=== PATIENT | female | born 1980 | race Caucasian/White ===

== ENCOUNTER → 2024-10-20 14:00 | Outpatient (BNV) | payer OTHER, SELFPAY | PROVIDERS: PCP Registered Nurse; Referring Provider Advanced Practice Midwife; Visit Provider Nurse Practitioner Family | DX: O99.013 Anemia complicating pregnancy, third trimester (principal); D50.9 Iron deficiency anemia, unspecified | CPT/HCPCS: 99204; 99213 ==

== ENCOUNTER 2024-11-14 14:00 | Outpatient (RCR) | payer OTHER, SELFPAY ==
[2024-10-24 14:53] VITALS: BP 116/71; PULSE 79; RESP 16; TEMP 36.7; O2SAT 98
[2024-10-31 13:52] VITALS: BP 106/68; PULSE 74; RESP 16; TEMP 36.6; O2SAT 98
[2024-11-07 13:58] VITALS: BP 107/77; PULSE 69; RESP 16; TEMP 36.6; O2SAT 99
[2024-11-14 14:06] VITALS: BP 103/64; PULSE 86; RESP 16; TEMP 36.7; O2SAT 96
== END 2024-11-14 14:27 | disposition home or self-care (01) ==
LOC: HO.INF 14:00
PROVIDERS: PCP Registered Nurse; Visit Provider Nurse Practitioner Family
DX: O99.019 Anemia complicating pregnancy, unspecified trimester (principal)
CPT/HCPCS: 96365; 96374; J1756

== ENCOUNTER 2024-12-12 13:00 | Outpatient (RCR) | payer OTHER, SELFPAY ==
[2024-11-21 12:19] VITALS: BP 112/65; PULSE 80; RESP 16; TEMP 36.6; O2SAT 98
[2024-11-28 14:34] VITALS: BP 118/68; PULSE 79; RESP 20; TEMP 37.1; O2SAT 97
[2024-12-05 13:32] VITALS: BP 117/66; PULSE 71; RESP 18; TEMP 36.1
[2024-12-12 13:08] VITALS: BP 98/66; PULSE 76; RESP 18; TEMP 36.6
== END 2024-12-12 14:11 | disposition home or self-care (01) ==
LOC: HO.INF 13:00
PROVIDERS: Visit Provider Nurse Practitioner Family
DX: O99.019 Anemia complicating pregnancy, unspecified trimester (principal); D50.9 Iron deficiency anemia, unspecified
CPT/HCPCS: 96365; 96374; J1756